=== PATIENT | male | born 1945 | race Caucasian/White ===

== ENCOUNTER → 2016-09-30 10:56 | Outpatient (CLI) | payer MEDICARE, OTHER ==
[2015-07-10 12:36] VITALS: BMI 23.8
[~2016-09-30 10:56] MED LIST: ATIVAN0.5 MG PO; Astelin NASAL SPRAY NASAL; FLUTICASONE PRO16 GM NS; FOLIC ACID1 MG PO; HYDROCODON-ACE1 EAC7 PO; IPRAT-ALBUT 0.5-3 ML UPD; LASIX40 MG PO; LEVAQUIN500 MG PO; LEVAQUIN750 MG PO; MEDROL DOSE PACK4 MG PO; MUCINEX600 MG PO; NICODERM C1 PATCH .1 TRANSDERM; OMNICEF300 MG PO; PEPCID20 MG PO; PERFOROMIS20 MCG/21 INH; PREDNISONE10 MG PO; PREDNISONE20 MG PO; PROAIR HFA8.5 GM INH; PROTONIX40 MG PO; PROVENTIL/2.5 MG/3 M INH; PULMICORT0.5 MG/21 INH; SINGULAIR10 MG PO; SPIRIVA18 MCG INH; SYMBICORT 16010.2 GM INH; THEO-24300 MG PO; VITAMIN B-1100 M1 PO
== END | disposition home or self-care (01) ==
LOC: D.RT 10:56
DX: J44.9 Chronic obstructive pulmonary disease, unspecified (principal)

== ENCOUNTER 2017-01-26 23:53 | Emergency (ER) | payer MEDICARE, OTHER ==
[2015-07-10 12:36] VITALS: BMI 23.8
[2017-01-27 01:30] LABS: BASOPHILS 0.4 % (0-2); HEMATOCRIT 38.2 % (42.0-54.0); HEMOGLOBIN 12.6 g/dL (13.5-17.5); IMMATURE GRANULOCYTES 0.9 % (0-5); LYMPHOCYTES 29.9 % (15-50); MCH 32.7 pg (26.0-34.0); MCV 99.2 fL (80.0-100.0); MEAN PLATELET VOLUME 10.2 fL (7.4-10.4); MONOCYTES 11.9 % (2-11); NEUTROPHILS 55.9 % (40-80); PLATELET COUNT 204 10x3/uL (130-400); RBC 3.85 10x6/uL (4.20-6.10); RDW 11.9 % (11.5-14.5); WBC 8.2 10x3/uL (4.8-10.8)
[2017-01-27 01:42] LABS: ALKALINE PHOSPHATASE 69 U/L (46-116); ALT (SGPT) 26 U/L (10-68); BILIRUBIN - TOTAL 0.38 mg/dL (0.2-1.3); CALC OSMOLALITY 270 mosm/kg (275-300); CALCIUM 7.9 mg/dL (8.5-10.1); CARBON DIOXIDE 33.1 mmol/L (21.0-32.0); CHLORIDE - SERUM 95 mmol/L (98-107); CREATININE - SERUM 0.9 mg/dL (0.6-1.3); GLUCOSE 103 mg/dL (74-106); POTASSIUM - SERUM 3.9 mmol/L (3.5-5.1); PROTEIN - SERUM 6.9 g/dL (6.4-8.2); SODIUM 135 mmol/L (136-145); UREA NITROGEN 14 mg/dL (7-18); eGFR NON AFRICAN AMERICAN 89 mL/min (90-120)
== END 2017-01-27 04:48 | disposition home or self-care (01) ==
LOC: D.ER 23:53
PROVIDERS: Emergency Medicine
DX: S93.401A Sprain of unspecified ligament of right ankle, initial encounter (principal); W01.0XXA Fall on same level from slipping, tripping and stumbling without subsequent striking against object, initial encounter; Y93.89 Activity, other specified; Y92.89 Other specified places as the place of occurrence of the external cause; E16.2 Hypoglycemia, unspecified; F10.10 Alcohol abuse, uncomplicated; J44.9 Chronic obstructive pulmonary disease, unspecified